=== PATIENT | male | born 1930 | race Caucasian/White ===

== ENCOUNTER → 2016-06-20 | Outpatient (CLI) | payer MEDICARE ==
[~2016-06-20] MED LIST: ASPI-482 PO; ATOR40TA PO; GLIP10TA20 PO; INSU100V8 SQ; METF500T4 PO; OMEG300C PO; OXYC-323 PO; SERT25TA4 PO; WARF2TAB7 PO; ZOLP10TA PO
== END | disposition home or self-care (01) ==
LOC: PCVCCLINIC 15:02
PROVIDERS: ATTEND Internal Medicine Cardiovascular Disease
DX: I48.91 Unspecified atrial fibrillation (principal); E78.2 Mixed hyperlipidemia; I10 Essential (primary) hypertension; I25.10 Atherosclerotic heart disease of native coronary artery without angina pectoris; I49.5 Sick sinus syndrome; Z79.01 Long term (current) use of anticoagulants; Z95.0 Presence of cardiac pacemaker; Z86.73 Personal history of transient ischemic attack (TIA), and cerebral infarction without residual deficits
CPT/HCPCS: 80061; 85610; G0463